=== PATIENT | male | born 1995 | race Caucasian/White ===

== ENCOUNTER 2019-08-29 16:11 | Emergency (ER) | payer OTHER ==
[~2019-08-29] VITALS: Ht 182.9 cm; Wt 98.1 kg
[2019-08-29 17:48] LABS: BASO % 0.5 % (0.0-1.0); EOS # 0.2 10^3/uL (0.0-0.5); EOS % 2.8 % (0.0-3.0); HEMATOCRIT 41.6 % (42.0-52.0); HEMOGLOBIN 13.9 g/dl (13.5-17.5); LYMPH # 2.1 10^3/uL (1.5-5.0); LYMPH % 36.3 % (24.0-44.0); MEAN CORPUSCULAR HEMOGLOBIN 31.2 pg (27.0-33.0); MEAN CORPUSCULAR HGB CONC 33.4 g/dl (32.0-36.5); MEAN CORPUSCULAR VOLUME 93.5 fl (80.0-96.0); MONO # 0.5 10^3/uL (0.0-0.8); MONO % 8.9 % (0.0-5.0); NEUTROPHILS # 2.9 10^3/uL (1.5-8.5); NEUTROPHILS % 51.2 % (36.0-66.0); PLATELET COUNT, AUTOMATED 170 10^3/uL (150-450); RED BLOOD COUNT 4.45 10^6/uL (4.30-6.10); WHITE BLOOD COUNT 5.7 10^3/uL (4.0-10.0)
[2019-08-29 18:12] LABS: ALBUMIN 4.2 GM/DL (3.2-5.2); ALT/SGPT 14 U/L (12-78); BILIRUBIN,DIRECT 0.3 MG/DL (0.0-0.2); BILIRUBIN,TOTAL 1.2 MG/DL (0.2-1.0); BLOOD UREA NITROGEN 14 MG/DL (7-18); CALCIUM LEVEL 9.3 MG/DL (8.5-10.1); CARBON DIOXIDE LEVEL 28 MEQ/L (21-32); CHLORIDE LEVEL 104 MEQ/L (98-107); CREATININE FOR GFR 0.98 MG/DL (0.70-1.30); GLOMERULAR FILTRATION RATE > 60.0 (>60); GLUCOSE, FASTING 118 MG/DL (70-100); LIPASE 155 U/L (73-393); POTASSIUM SERUM 3.8 MEQ/L (3.5-5.1); SODIUM LEVEL 140 MEQ/L (136-145); TOTAL PROTEIN 7.9 GM/DL (6.4-8.2)
[2019-08-29] MEDS ORDERED: ISOVUE-370 76% 100ML VIAL (Q9967) As Ordered ONE (20:33)
[2019-08-29] MEDS: GASTROGRAFIN SOLUTION 30ML PO SCH ×2 (20:36→21:06)
--- NOTE | 2019-08-29 22:41 | REPVR ---
PROCEDURE INFORMATION: Exam: CT Abdomen and pelvis with contrast Exam date and time: 08/29/2019 7:23 PM Clinical history: 23 years old, male; Abdominal pain; Generalized; Additional info: Rectal bleeding, abdominal pain TECHNIQUE: Imaging protocol: Computed tomography of the abdomen and pelvis with intravenous contrast. Axial, coronal and sagittal reformatted images were created and reviewed. Radiation optimization: All CT scans at this facility use at least one of these dose optimization techniques: automated exposure control; mA and/or kV adjustment per patient size (includes targeted exams where dose is matched to clinical indication); or iterative reconstruction. Contrast material: ISO; Contrast volume: 100 ml; Contrast route: AC; COMPARISON: No relevant prior studies available. FINDINGS: Liver: Unremarkable. Gallbladder and bile ducts: No radiodense gallstones. No biliary ductal dilatation. Pancreas: Unremarkable. Spleen: Unremarkable. Adrenals: Unremarkable. Kidneys and ureters: No mass. No radiodense calculi. No hydronephrosis. Stomach and bowel: No bowel wall thickening. No obstruction. No pneumatosis. Appendix: Normal. Intraperitoneal space: No free fluid. No organized fluid collection. No free air. Vasculature: Unremarkable. No aneurysm. Lymph nodes: No pathologically enlarged lymph nodes. Bladder: Unremarkable. Reproductive: Unremarkable. Bones/joints: No acute osseous abnormality. Soft tissues: Unremarkable. IMPRESSION: No CT evidence of acute intra-abdominal or pelvic pathology. Electronically signed by: Clyde Eden On 08/29/2019 22:41:08 PM
[2019-08-29 23:01] VITALS: BP 127/65
== END 2019-08-29 23:23 | disposition home or self-care (01) ==
LOC: M ED 16:11
DX: K62.5 Hemorrhage of anus and rectum (principal); R11.0 Nausea; R19.7 Diarrhea, unspecified; F17.200 Nicotine dependence, unspecified, uncomplicated; Z88.0 Allergy status to penicillin
CPT/HCPCS: 74177; 80048; 80076; 81001; 83690; 85025; 99284; Q9963; Q9967

== ENCOUNTER 2020-10-08 14:57 | Emergency (ER) | payer OTHER ==
[~2020-10-08] VITALS: Ht 182.9 cm; Wt 91.0 kg
--- NOTE | 2020-10-08 15:25 | REP ---
INDICATION: TRAUMA. COMPARISON: None. TECHNIQUE: Four views FINDINGS: Minor soft tissue swelling about the of 5th digit without fracture, avulsion, subluxation or foreign body. The joints and adjacent bones are unremarkable. IMPRESSION: 1. No fracture, avulsion, subluxation or foreign body identified about the 5th finger. <Electronically signed by Stuart Jessica > 10/08/20 1528
[2020-10-08] MEDS ORDERED: DERMABOND TOPICAL SKIN ADHESIVE TOP ONE (15:45)
[2020-10-08 16:52] VITALS: BP 126/71
== END 2020-10-08 16:59 | disposition home or self-care (01) ==
LOC: M ED 14:57
DX: S60.152A Contusion of left little finger with damage to nail, initial encounter (principal); W20.8XXA Other cause of strike by thrown, projected or falling object, initial encounter; Y92.69 Other specified industrial and construction area as the place of occurrence of the external cause; Z88.1 Allergy status to other antibiotic agents

== ENCOUNTER 2021-03-19 15:59 | Emergency (ER) | payer OTHER ==
[~2021-03-19] VITALS: Ht 182.9 cm; Wt 94.0 kg
[2021-03-19 18:43] LABS: BASO % 0.3 % (0.0-1.0); EOS # 0.1 10^3/uL (0.0-0.5); EOS % 0.6 % (0.0-3.0); LYMPH # 1.6 10^3/uL (1.5-5.0); LYMPH % 14.8 % (24.0-44.0); MEAN CORPUSCULAR HEMOGLOBIN 30.7 pg (27.0-33.0); MEAN CORPUSCULAR HGB CONC 33.3 g/dl (32.0-36.5); MEAN CORPUSCULAR VOLUME 92.2 fl (80.0-96.0); MONO # 0.7 10^3/uL (0.0-0.8); MONO % 6.5 % (2.0-8.0); NEUTROPHILS # 8.5 10^3/uL (1.5-8.5); NEUTROPHILS % 77.6 % (36.0-66.0); PLATELET COUNT, AUTOMATED 203 10^3/uL (150-450); RED BLOOD COUNT 4.88 10^6/uL (4.30-6.10); WHITE BLOOD COUNT 10.9 10^3/uL (4.0-10.0)
[2021-03-19 19:12] LABS: ALBUMIN 4.2 GM/DL (3.2-5.2); BILIRUBIN,DIRECT 0.1 MG/DL (0.0-0.2); BILIRUBIN,TOTAL 0.6 MG/DL (0.2-1.0)
[2021-03-19 19:21] VITALS: BP 129/71
== END 2021-03-19 19:24 | disposition home or self-care (01) ==
LOC: M ED 15:59
DX: R04.2 Hemoptysis (principal); R10.817 Generalized abdominal tenderness; F17.290 Nicotine dependence, other tobacco product, uncomplicated; Z88.0 Allergy status to penicillin; Z87.19 Personal history of other diseases of the digestive system

== ENCOUNTER 2021-04-05 09:26 | Emergency (ER) | payer OTHER ==
[~2021-04-05] VITALS: Ht 182.9 cm; Wt 99.4 kg
[2021-04-05 09:26] VITALS: BP 138/69
[2021-04-06] MEDS ORDERED: ERYT5OIN25 OD (12:07)
== END 2021-04-05 10:09 | disposition left against medical advice (07) ==
LOC: M ED 09:26
DX: Z53.29 Procedure and treatment not carried out because of patient's decision for other reasons (principal)

== ENCOUNTER 2021-04-06 10:58 | Emergency (ER) | payer OTHER ==
[~2021-04-06] VITALS: Ht 182.9 cm; Wt 94.5 kg
[2021-04-06 10:59] VITALS: BP 131/72
[2021-04-06] MEDS ORDERED: ERYT5OIN25 OD (12:07)
== END 2021-04-06 12:22 | disposition home or self-care (01) ==
LOC: M ED 10:58
DX: H00.022 Hordeolum internum right lower eyelid (principal); Z88.0 Allergy status to penicillin; Z77.098 Contact with and (suspected) exposure to other hazardous, chiefly nonmedicinal, chemicals

== ENCOUNTER 2021-10-28 13:25 | Day surgery (SDC) | payer OTHER ==
[~2021-10-28] VITALS: Ht 177.8 cm; Wt 87.0 kg
[~2021-10-28 13:25] MED LIST: ERYT5OIN25 OD; IBUP-1022 PO; NS 1,000 ML IV ONE
[2021-10-28] MEDS ORDERED: propofoL 200 MG/20 ML VIAL As Ordered ONE ×2 (14:16→15:39)
[2021-10-28] MEDS ORDERED: LIDOCAINE 2% 100MG/5ML SDV (FOR ANES.) As Ordered ONE (14:16)
[2021-10-28] MEDS ORDERED: fentaNYL 100 MCG/2 ML INJECTION As Ordered ONE (14:17)
[2021-10-28 16:30] VITALS: BP 119/62
== END 2021-10-28 16:40 | disposition home or self-care (01) ==
LOC: M OPP 13:25
PROVIDERS: ATTEND Internal Medicine Gastroenterology
DX: K62.5 Hemorrhage of anus and rectum (principal); K92.0 Hematemesis; K22.89 Other specified disease of esophagus; K20.0 Eosinophilic esophagitis; R12 Heartburn; Z88.0 Allergy status to penicillin; F17.210 Nicotine dependence, cigarettes, uncomplicated; Z80.1 Family history of malignant neoplasm of trachea, bronchus and lung; Z80.3 Family history of malignant neoplasm of breast
CPT/HCPCS: 43239; 45380; 88305; J3010

== ENCOUNTER 2022-04-21 08:45 | Emergency (ER) | payer OTHER ==
[~2022-04-21] VITALS: Ht 182.9 cm; Wt 88.2 kg
[~2022-04-21 08:45] MED LIST changes: -NS 1,000 ML IV ONE
[2022-04-21] MEDS ORDERED: ISOT20CA PO (09:10)
[2022-04-21] MEDS ORDERED: OMEP-173 PO (09:12)
[2022-04-21] MEDS ORDERED: KETOROLAC 30 MG/ML 1ML VIAL IV ONE (10:40)
[2022-04-21 11:11] LABS: BASO % 0.6 % (0.0-1.0); EOS # 0.3 10^3/uL (0.0-0.5); EOS % 4.3 % (0.0-3.0); HEMOGLOBIN 14.8 g/dl (13.5-17.5); LYMPH % 30.2 % (24.0-44.0); MEAN CORPUSCULAR HEMOGLOBIN 31.8 pg (27.0-33.0); MEAN CORPUSCULAR HGB CONC 33.6 g/dl (32.0-36.5); MEAN CORPUSCULAR VOLUME 94.4 fl (80.0-96.0); MONO # 0.5 10^3/uL (0.0-0.8); MONO % 7.9 % (2.0-8.0); NEUTROPHILS # 3.7 10^3/uL (1.5-8.5); NEUTROPHILS % 56.8 % (36.0-66.0); PLATELET COUNT, AUTOMATED 208 10^3/uL (150-450); RED BLOOD COUNT 4.66 10^6/uL (4.30-6.10); WHITE BLOOD COUNT 6.6 10^3/uL (4.0-10.0)
[2022-04-21 11:41] LABS: CK-MB VALUE MASS < 1.0 NG/ML (<3.6); CPK CREATINE PHOSPHOKINASE 92 U/L (39-308); MB/CK RELATIVE INDEX 1.09 (< OR =4)
[2022-04-21 12:01] LABS: ALBUMIN 4.3 GM/DL (3.2-5.2); ALT/SGPT 14 U/L (12-78); BILIRUBIN,DIRECT 0.2 MG/DL (0.0-0.2); BILIRUBIN,TOTAL 0.9 MG/DL (0.2-1.0); BLOOD UREA NITROGEN 15 MG/DL (7-18); CALCIUM LEVEL 9.2 MG/DL (8.5-10.1); CARBON DIOXIDE LEVEL 29 MEQ/L (21-32); CHLORIDE LEVEL 104 MEQ/L (98-107); CREATININE FOR GFR 1.11 MG/DL (0.70-1.30); GLOMERULAR FILTRATION RATE > 60.0 (>60); GLUCOSE, FASTING 100 MG/DL (70-100); LIPASE 224 U/L (73-393); NT-PRO BNP 29 PG/ML (<125); POTASSIUM SERUM 4.1 MEQ/L (3.5-5.1); SODIUM LEVEL 138 MEQ/L (136-145); THYROID STIMULATING HORMONE 0.541 uIU/ML (0.358-3.740); TOTAL PROTEIN 8.2 GM/DL (6.4-8.2)
[2022-04-21 12:35] VITALS: BP 127/82
== END 2022-04-21 12:35 | disposition home or self-care (01) ==
LOC: M ED 08:45
DX: R07.89 Other chest pain (principal); R06.00 Dyspnea, unspecified; K21.9 Gastro-esophageal reflux disease without esophagitis; Z88.0 Allergy status to penicillin; Z79.899 Other long term (current) drug therapy; F17.200 Nicotine dependence, unspecified, uncomplicated
CPT/HCPCS: 71045; 80048; 80076; 82550; 82553; 83690; 83880; 84443; 84484; 85025; 93005; 96374; 99284; J1885